=== PATIENT | female | born 1975 | race Two or more races ===

== ENCOUNTER 2017-12-08 06:09 | Day surgery (SDC) | payer OTHER ==
[~2017-12-08 06:09] MED LIST: LIPITOR20 MG PO; TOPROL XL25 MG PO; VASOTEC2.5 MG PO
[2017-12-08] MEDS ORDERED: OXYCODONE HCL10 M1 PO (13:25)
[2017-12-08] MEDS ORDERED: COLACE100 MG PO (13:25)
[2017-12-08] MEDS ORDERED: NEURONTIN300 MG PO (13:25)
== END 2017-12-08 17:35 | disposition home or self-care (01) ==
LOC: CIR.AMB 06:09
DX: K64.4 Residual hemorrhoidal skin tags (principal)

== ENCOUNTER 2021-05-08 15:17 | Outpatient (CLI) | payer OTHER ==
[~2021-05-08 15:17] MED LIST changes: +COLACE100 MG PO; +NEURONTIN300 MG PO; +OXYCODONE HCL10 M1 PO
== END 2021-05-08 15:30 | disposition home or self-care (01) ==
LOC: RAD 15:17
PROVIDERS: ATTEND Orthopaedic Surgery
DX: M25.571 Pain in right ankle and joints of right foot (principal)

== ENCOUNTER 2021-12-03 15:59 | Outpatient (CLI) | payer OTHER | END 2021-12-03 16:10 | disposition home or self-care (01) | LOC: LAB 15:59 | PROVIDERS: ATTEND Orthopaedic Surgery | DX: L02.91 Cutaneous abscess, unspecified (principal) ==